=== PATIENT | female | born 1940 | race Caucasian/White ===

== ENCOUNTER → 2024-06-11 | Outpatient (CLI) | payer MEDICARE, BC ==
[2024-06-11 10:01] VITALS: BP 145/82; PULSE 99; RESP 16; TEMP 97.1
--- NOTE | 2024-06-11 14:34 | P.PAINPG ---
PQRS Measure Charge Sheet Comment: HISTORY OF PRESENT ILLNESS: A 83 yr old female w at [facility] as a referral from Dr Parson presents today w severe and chronic mid back pain > 1 yr secondary to radiculopathy, spondylosis and facet arthropathy without myelopathy for evaluation. Pt states pain level is provoked at 7 /10 in intensity, constant, localized in the R lower thoracic spine, predominantly axial, sore in character w occasional shooting pain towards the R flanks. Pain is provoked by any movement. Pain is alleviated by PT x 12 wks which ended in late May 2024, physician guided home stretches daily since May 2024, heat, ice, medications (Lyrica, Ibu), topical, repositioning and rest . PMH: OA, HTN, Hyperlipidemia, IBS, GERD, COPD, NIDDM II PSH: Cholecystectomy, Appendectomy, BL CTR (2000), Colectomy, Partial Hysterectomy, EGD/ Colonoscopy (2022), TESIs in [place] SH: Former tobacco user, No ETOH use, No illicit drug use FH: Mo- CA. Sis- DM. All: See list Meds: See list REVIEW OF ORGAN SYSTEMS: CONSTITUTIONAL: No fevers or chills. No recent weight loss. NEUROLOGICAL: + numbness and tingling along the distal extremities. No seizure disorders or headaches. MUSCULOSKELETAL: + pain PSYCHIATRIC: Denies current depression or suicidal thoughts. Physical Examinations : Constitutional : Cooperative , not in acute distress . Neurologic : Cranial nerve II to XII intact. No focal neurological deficits. Psychiatric : alert & oriented x 3. Matching mood & appropriate affect. Judgment & insight intact. Musculoskeletal : Cervical Spine Motor strength in the deltoid and biceps: Normal right side. Normal Left side Motor strength biceps and the wrist extensors: Normal right side . Normal left side Motor strength in the triceps muscle: Normal right side. Normal left side Deep tendon reflexes: Normal at the biceps. Normal at Brachioradialis. Normal at triceps Vertebral body tenderness to deep palpation over Cervical facet loading test: positive bilaterally Spurling test: positive bilaterally Neck distraction test: positive bilaterally Ozzy sign: positive bilaterally Thoracic spine Vertebral body TTP over T10 Diallo test positive R T10-T11 Lumbar spine Motor strength lower extremities ,thigh and legs 5/5 Right side , 5/5 Left side Deep tendon reflexes : Normal Knee Jerk. Normal Ankle Jerk Vertebral body tenderness over Diallo Test positive Lumbar facet Loading Test: positive Right / positive Left Range of motion of the lumbar spine Flexion 30 degrees, extension 10 degrees Straight Leg Raise test: Left/ Right positive at degrees Rosalie test: positive right / positive left. Severe tenderness over the Sacroiliac joint on the Right / Left sides Gaenslen test: positive bilaterally Seated flexion test: positive bilaterally. Sacral spine : Severe tenderness over the Sacroiliac joint: right side / left side Range of motion: Flexion of the lumbar spine <60 degrees Range of motion: Extension of the lumbar spine <20 degrees Gaenslen's Test positive Rosalie test: positive right side / left side Thigh Thrust Test Sacral Thrust Test Imaging: FUAD non contrast thoracic spine from 01/30/24 reviewed Assessment/ Plan : T10-T11 radiculopathy Recommendation of RAJWINDER T10 T11 #1. Risks, benefits of procedure discussed and patient verbalized understanding. Admits to anti- coagulant use or medical history of diabetes. Protocol for discontinuation/ continuation of medications willie procedure discussed. Valium 5mg #2 NR Use, side effects, adverse reactions, safe storage discussed. Pt acknowledged understanding. All questions answered. I have spent greater than 30 minutes on patient care today. Dr Barbosa was available by phone for the evaluation of this patient. The time was used to review the medical records including relevant urine studies and Prescription history (MAPs), review of the available imaging, evaluation and examination of the patient, coordination of care with the medical staff and if applicable referring physicians, as well as creation of the medical record - Pain Location Bilateral Upper Back Non-Pharmacological Interventions: Ice, Inactivity, Position/Reposition, Sitting Pharmacological Interventions: Epidural, PRN Medication, Scheduled Medication, Topical Medication Home Medications: Ambulatory Orders Atorvastatin [Lipitor] 40 mg PO DAILY 06/11/24 Pregabalin [Lyrica] 100 mg PO 06/11/24 diazePAM [Valium] 5 mg PO DAILY PRN 1 Days #2 tab 06/11/24 Controlled Substance Measures - Controlled Substance Measures Is patient prescribed a controlled substance at discharge?: Yes When asked, does pt state using other controlled substances?: Yes If prescribed controlled substance>3 days was MAPS reviewed?: Prescribed <3 Days
== END ==
LOC: PNWHC3 09:34
PROVIDERS: ATTEND Specialist
DX: M54.6 Pain in thoracic spine (principal); M54.14 Radiculopathy, thoracic region; Z87.891 Personal history of nicotine dependence; Z88.8 Allergy status to other drugs, medicaments and biological substances
CPT/HCPCS: 99202

== ENCOUNTER 2024-06-28 09:46 | Day surgery (SDC) | payer MEDICARE, BC ==
[2024-06-28 10:55] VITALS: TEMP 97.9
[2024-06-28] MEDS ORDERED: IOPAMIDOL M200 10 ML VIAL ONE (11:48)
[2024-06-28] MEDS ORDERED: methylPREDNISolone ACETATE 40 MG/ML 1 ML VIAL ONE (11:48)
--- NOTE | 2024-06-28 11:56 | P.PCN ---
Date of Procedure: 06/28/24 Procedure(s) Performed: PREOPERATIVE DIAGNOSIS: 1- Thoracic Degenerative Disc Diseases 2-Thoracic radiculopathy POSTOPERATIVE DIAGNOSIS: Same As preop diagnosis PROCEDURE 1. Thoracic epidural steroid injection under fluoroscopic guidance at the T10-11 level. (Fluoroscopy imaging was available in radiology department) 2. Thoracic epidurogram. ANESTHESIA: Lidocaine 1% 3 and then only. EBL: Minimal PROCEDURE INDICATION: The patient with mid back pain and radiculitis symptoms unresponsive to conservative treatment. Fluoroscopy was used to optimize visualization of the needle placement and to maximize safety. PROCEDURE DESCRIPTION / TECHNIQUE: The patient was seen and identified in the preoperative area. Risks, benefits, complications including but not limited to infections ,bleeding ,allergic reaction to the medications ,nerve damage and not complete pain releife , and alternatives were discussed with the patient. The patient agreed to proceed with the procedure and signed the consent, and vital signs were stable. Patient was taken to the OR and time out was completed. The patient was placed in the prone position on procedure table and a pillow was placed under the abdomen to reduce lumbar lordosis. The lumbosacral area was prepped and draped in the usual sterile fashion.ere closely monitored during the procedure. Vital signs was monitered during the entire procedure. Using anterior-posterior fluoroscopy, the T10-11 interlaminar space was identified and the skin over this site was marked and then infiltrated with 1% lidocaine subcutaneously. Subsequently, a 20-gauge Tuohy epidural needle was inserted and advanced toward the epidural space using the ``Loss of resistance technique and guided by AP and lateral fluoroscopy. The correct needle position in the epidural space was verified with the injection of 2 mL of the water soluble contrast dye Isovue 200 contrast and observing an excellent epidurogram with the epidural spread of the dye, after negative aspiration for blood and CSF and in the absence of paresthesias. Again after negative aspiration, a 5 ml mixture containing 40 mg of Depo-medrol ( Preservetive Free ), and 2 ml of preservative free Normal Saline, and 2 ml of preservative free lidocaine 1% solution was injected and a washout of epidurogram was seen. Needle was withdrawn intact, skin was cleansed, and bandages were applied. COMPLICATIONS: None DISPOSITION / PLANS: The patient was placed in a supine position and transferred to the recovery area in a stable condition for observation. There was no evidence of lower extremity motor or sensory deficit after the procedure. Patient was discharged from the recovery room after meeting discharge criteria. Home discharge instructions were given to the patient by the staff. The patient was reexamined prior to discharge. The patient will schedule a follow up in the clinic in 2-4 weeks.
[2024-06-28 12:06] VITALS: RESP 14
[2024-06-28 12:20] VITALS: BP 149/82; PULSE 89
--- NOTE | 2024-06-28 12:58 | FL ---
Fluoroscopy guided pain management statistically. HISTORY: Back pain. COMPARISON: None. TECHNIQUE: 7.4 seconds of fluoroscopy and single spot film of the mid thoracic spine were obtained. IMPRESSION: Thoracic epidural injection documented as described above. [facility], , 06/28/2024 12:56 PM
[2024-06-28] MEDS ORDERED: LACTATED RINGERS 1,000 ML IV SCH (13:00)
== END 2024-06-28 12:30 | disposition home or self-care (01) ==
LOC: ORPAIN 09:46
PROVIDERS: ATTEND Specialist
DX: M51.34 Other intervertebral disc degeneration, thoracic region (principal)
CPT/HCPCS: 62321; Q9966; J1010

== ENCOUNTER → 2024-11-19 | Outpatient (CLI) | payer MEDICARE, BC ==
[2024-11-19 10:34] VITALS: BP 128/78; PULSE 71; RESP 16; TEMP 97.8
--- NOTE | 2024-11-19 15:23 | P.PAINPG ---
PQRS Measure Charge Sheet Comment: HISTORY OF PRESENT ILLNESS: A 83 yr old female w at side presents today w severe and chronic mid back pain > 1 yr secondary to radiculopathy, spondylosis and facet arthropathy without myelopathy for evaluation s/p RAJWINDER T10 T11 #1. Pt states she experienced 80% pain relief x 3 mo s/p procedure. Pt states pain level is provoked at 6-7 /10 in intensity, constant, localized in the R lower thoracic spine, predominantly axial, sore in character w occasional shooting pain towards the R flanks. Pain is provoked by any movement. Pain is alleviated by injections, PT x 12 wks which ended in late May 2024, physician guided home stretches daily since May 2024, heat, ice, medications, topical, repositioning and rest . Interventional procedures include RAJWINDER T10 T11 x1 Medications incl Lyrica, Ibu REVIEW OF ORGAN SYSTEMS: CONSTITUTIONAL: No fevers or chills. No recent weight los s. NEUROLOGICAL: + numbness and tingling along the distal extremities. No seizure disorders or headaches. MUSCULOSKELETAL: + pain PSYCHIATRIC: Denies current depression or suicidal thoughts. Physical Examinations : Constitutional : Cooperative , not in acute distress . Neurologic : Cranial nerve II to XII intact. No focal neurological deficits. Psychiatric : alert & oriented x 3. Matching mood & appropriate affect. Judgment & insight intact. Musculoskeletal : Cervical Spine Motor strength in the deltoid and biceps: Normal right side. Normal Left side Motor strength biceps and the wrist ex tensors: Normal right side . Normal left side Motor strength in the triceps muscle: Normal right side. Normal left side Deep tendon reflexes: Normal at the biceps. Normal at Brachioradialis. Normal at triceps Vertebral body tenderness to deep palpation over Cervical facet loading test: positive bilaterally Spurling test: positive bilaterally Neck distraction test: positive bilaterally Ozzy sign: positive bilaterally Thoracic spine Vertebral body TTP over T10 Diallo test positive R T10-T11 Lumbar spine Motor strength lower extremities ,thigh and legs 5/5 Right side , 5/5 Left side Deep tendon reflexes : Normal Knee Jerk. Normal Ankle Jerk Vertebral body tenderness over Diallo Test positive Lumbar facet Loading Test: positive Right / positive Left Range of motion of the lumbar spine Flexion 30 degrees, extension 10 degrees Straight Leg Raise test: Left/ Right positive at degrees Rosalie test: positive right / positive left. Severe tenderness over the Sacroiliac joint on the Right / Left sides Gaenslen test: positive bilaterally Seated flexion test: positive bilaterally. Sacral spine : Severe tenderness over the Sacroiliac joint: right side / left side Range of motion: Flexion of the lumbar spine <60 degrees Range of motion: Extension of the lumbar spine <20 degrees Gaenslen's Test positive Rosalie test: positive right side / left side Thigh Thrust Test Sacral Thrust Test Imaging: FUAD non contrast thoracic spine from 01/30/24 reviewed Assessment/ Plan : T10-T11 radiculopathy Recommendation of RAJWINDER T10-T11 #2. Risks, benefits of procedure discussed and patient verbalized understanding. Admits to anti- coagulant use or medical history of diabetes. Protocol for discontinuation/ continuation of medications willie procedure discussed. Valium 5mg #2 NR Use, side effects, adverse reactions, safe storage discussed. Pt acknowledged understanding. All questions answered. I have spent greater than 30 minutes on patient care today. Dr Barbosa was available by phone for the evaluation of this patient. The time was used to review the medical records including relevant urine studies and Prescription history (MAPs), review of the available imaging, evaluation and examination of the patient, coordination of care with the medical staff and if applicable referring physicians, as well as creation of the medical record PQRS Narrative: Hx Alcohol Use (MH) No Home Medications: Ambulatory Orders Atorvastatin [Lipitor] 40 mg PO DAILY 06/11/24 Pregabalin [Lyrica] 75 mg PO TID 06/11/24 Atorvastatin [Lipitor] 10 mg PO HS 06/26/24 atenoloL 25 mg PO DAILY 06/26/24 diazePAM [Valium] 5 mg PO DIRECTED 06/26/24 LORazepam [Ativan] 1 tab PO PRN 06/28/24 Controlled Substance Measures - Controlled Substance Measures Is patient prescribed a controlled substance at discharge?: Yes When asked, does pt state using other controlled substances?: No If prescribed controlled substance>3 days was MAPS reviewed?: Prescribed <3 Days
== END ==
LOC: PNWHC3 10:16
PROVIDERS: ATTEND Specialist
DX: M47.24 Other spondylosis with radiculopathy, thoracic region (principal); G89.29 Other chronic pain; Z88.6 Allergy status to analgesic agent
CPT/HCPCS: 99212

== ENCOUNTER → 2025-02-04 | Outpatient (CLI) | payer MEDICARE, BC ==
[2025-02-04 09:30] VITALS: BP 131/83; PULSE 80; RESP 19
--- NOTE | 2025-02-04 15:48 | P.PAINPG ---
Objective - Vital Signs Vital signs: Vital Signs Temp Pulse 80 02/04/25 09:22 Resp 19 02/04/25 09:22 BP 131/83 02/04/25 09:22 Pulse Ox 97 02/04/25 09:22 FiO2 PQRS Measure Charge Sheet Mode of Arrival: Ambulatory Comment: HISTORY OF PRESENT ILLNESS: A 83 yr old female w at side presents today w severe and chronic mid back pain > 1 yr secondary to radiculopathy, spondylosis and facet arthropathy without myelopathy for evaluation s/p RAJWINDER T10 T11 #2. Pt states she experienced 50% pain relief x 2 wks s/p procedure. Pt states pain level is provoked at 2-6 /10 in intensity, constant, localized in the R thoracolumbar spine, predominantly axial, sore in character w occasional shooting pain towards the R flanks. She thinks she was overworked by her chiropractor recently. Pain is provoked by any movement. Pain is alleviated by injections, PT x 12 wks which ended in late May 2024, physician guided home stretches daily since May 2024, heat, ice, medications, topical, repositioning and rest . Interventional procedures include RAJWINDER T10 T11 x2 (12/30) Medications incl Lyrica, Ibu REVIEW OF ORGAN SYSTEMS: CONSTITUTIONAL: No fevers or chills. No recent weight loss. NEUROLOGICAL: + numbness and tingling along the distal extremities. No seizure disorders or headaches. MUSCULOSKELETAL: + pain PSYCHIATRIC: Denies current depression or suicidal thoughts. Physical Examinations : Constitutional : Cooperative , not in acute distress . Neurologic : Cranial nerve II to XII intact. No focal neurological deficits. Psychiatric : alert & oriented x 3. Matching mood & appropriate affect. Judgment & insight intact. Musculoskeletal : Cervical Spine Motor strength in the deltoid and biceps: Normal right side. Normal Left side Motor strength biceps and the wrist extensors: Normal right side . Normal left side Motor strength in the triceps muscle: Normal right side. Normal left side Deep tendon reflexes: Normal at the biceps. Normal at Brachioradialis. Normal at triceps Vertebral body tenderness to deep palpation over Cervical facet loading test: positive bilaterally Spurling test: positive bilaterally Neck distraction test: positive bilaterally Ozzy sign: positive bilaterally Thoracic spine Vertebral body TTP over T10 Diallo test positive R T10-T11 Taut bands w twitch response over R T4-L4 Lumbar spine Motor strength lower extremities ,thigh and legs 5/5 Right side , 5/5 Left side Deep tendon reflexes : Normal Knee Jerk. Normal Ankle Jerk Vertebral body tenderness over Diallo Test positive Lumbar facet Loading Test: positive Right / positive Left Range of motion of the lumbar spine Flexion 30 degrees, extension 10 degrees Straight Leg Raise test: Left/ Right positive at degrees Rosalie test: positive right / positive left. Severe tenderness over the Sacroiliac joint on the Right / Left sides Gaenslen test: positive bilaterally Seated flexion test: positive bilaterally. Sacral spine : Severe tenderness over the Sacroiliac joint: right side / left side Range of motion: Flexion of the lumbar spine <60 degrees Range of motion: Extension of the lumbar spine <20 degrees Gaenslen's Test positive Rosalie test: positive right side / left side Thigh Thrust Test Sacral Thrust Test Imaging: FUAD non contrast thoracic spine from 01/30/24 reviewed Assessment/ Plan : T10-T11 radiculopathy, myofacial pain syndrome Recommendation of R TPIs T4-L4 #1. Risks, benefits of procedure discussed and patient verbalized understanding. Valium 5mg #2 NR Use, side effects, adverse reactions, safe storage discussed. Pt acknowledged understanding. All questions answered. I have spent greater than 30 minutes on patient care today. Dr Barbosa was av ailable by phone for the evaluation of this patient. The time was used to review the medical records including relevant urine studies and Prescription history (MAPs), review of the available imaging, evaluation and examination of the patient, coordination of care with the medical staff and if applicable referring physicians, as well as creation of the medical record - Pain Location Lower Medial Back Pharmacological Interventions: Medication PQRS Narrative: Blood Pressure 131/83 Pain Intensity [Lower Medial 2 Back] Scale Used Numeric (1 - 10) Hx Alcohol Use (MH) No Home Medications: Ambulatory Orders Pregabalin [Lyrica] 75 mg PO TID 06/11/24 Atorvastatin [Lipitor] 10 mg PO HS 06/26/24 atenoloL 25 mg PO DAILY 06/26/24 diazePAM [Valium] 5 mg PO DIRECTED 1 Days #2 tab 02/04/25 Controlled Substance Measures - Controlled Substance Measures Is patient prescribed a controlled substance at discharge?: Yes When asked, does pt state using other controlled substances?: No If prescribed controlled substance>3 days was MAPS reviewed?: Prescribed <3 Days
== END ==
LOC: PNWHC3 09:05
PROVIDERS: ATTEND Specialist
DX: M47.24 Other spondylosis with radiculopathy, thoracic region (principal); M79.18 Myalgia, other site; Z88.6 Allergy status to analgesic agent
CPT/HCPCS: 99212

== ENCOUNTER 2025-02-21 10:04 | Day surgery (SDC) | payer MEDICARE, BC ==
[~2025-02-21 10:04] MED LIST: LACTATED RINGERS 1,000 ML IV SCH
[2025-02-21 11:26] VITALS: TEMP 96.9
[2025-02-21 11:32] LABS: Glucose,Whole Blood 94 mg/dL (70-110)
[2025-02-21] MEDS ORDERED: methylPREDNISolone ACETATE 40 MG/ML 1 ML VIAL ONE (12:09)
[2025-02-21] MEDS ORDERED: ROPIVACAINE 5 MG/ML 30 ML VIAL ONE (12:09)
--- NOTE | 2025-02-21 12:18 | P.PCN ---
Description of Procedure: Preprocedure diagnosis. Myofascial pain. Myofascial trigger point. Postprocedure diagnosis. As above. Procedure done. Myofascial trigger point injection with local anesthetics and steroid at 4 points. Anesthesia. Ethyl chloride spray. Local anesthetic infiltration. In the OR continuous pulse ox, EKG, blood pressure, and verbal communication was maintained with the patient. Blood loss. None. Indication. Discussed with the patient procedure, alternatives and possible complications which may include infection, bleeding, nerve damage, aggravation of pain. Patient understands and all questions were answered. Procedure note. After getting consent patient in the procedure area. Most tender points were identified and marked. A 25-gauge needle attached to syringe was introduced at the trigger points and after negative aspiration 5 mL solution are injected at each trigger point. I injected 2 trigger points in right lumber paraspinal muscles, 2 trigger points in right flank area. Total solution consists of 20 ml 0.5%Ropivacaine mixed with 40 mg Depomedrol. Disposition. Patient tolerated the procedure well. No complication. Discharged home in stable condition.
[2025-02-21 12:20] VITALS: BP 135/85
[2025-02-21 12:53] VITALS: PULSE 78; RESP 18
== END 2025-02-21 12:53 | disposition home or self-care (01) ==
LOC: ORPAIN 10:04
PROVIDERS: ATTEND Pain Medicine Interventional Pain Medicine
DX: M79.18 Myalgia, other site (principal); Z88.1 Allergy status to other antibiotic agents
CPT/HCPCS: 20553; J2795; J1010